=== PATIENT | female | born 1990 | race Two or more races ===

== ENCOUNTER 2024-05-15 19:51 | Emergency (ER) | payer MEDICAID, OTHER ==
[~2024-05-15] VITALS: Ht 160 cm; Wt 77.5 kg
[2024-05-15 21:25] VITALS: BP 105/70; PULSE 74; RESP 16; TEMP 98.1; O2SAT 98
--- NOTE | 2024-05-15 22:14 | ED.PDOC ---
History of Present Illness(SKN HPI Comments PRESENTS TO ED FOR RASHES TO BILATERAL HANDS X 5 DAYS. NOTED REDNESS AND DRYNESS ON BILATERAL HANDS. BEEN APPLYING CALAMINE LOTION AND BURN OINTMENT WITHOUT RELIEF. REPORTS ITCHINESS AND BURNING SENSATION. DENIES ANY CHANGES ON HER SKIN PRODUCTS. Chief Complaint: Rash Time Seen by MD: :25 History of Present Illness: Nurses Notes, Medications, Allergies Allergies: Coded Allergies: NO KNOWN ALLERGIES (Unverified , 05/15/24) Information Source: Patient Mode of Arrival: Ambulatory Past Medical History PAST MEDICAL HISTORY: Denies Surgical History: Denies all surgeries [employer] History: No Pertinent [employer] History Family History Family History: Reviewed,noncontributory to illness Social History Smoker: Non-Smoker Alcohol: Denies ETOH Use Drugs: Denies Drug Use Constitutional: denies: chills, diaphoresis, fatigue, fever, malaise, sweats, weakness, others EENTM: denies: blurred vision, double vision, ear bleeding, ear discharge, ear drainage, ear pain, ear ringing, eye pain, eye redness, hearing loss, mouth pain, mouth swelling, nasal discharge, nose bleeding, nose congestion, nose pain, photophobia, tearing, throat pain, throat swelling, voice changes, others Respiratory: denies: cough, hemoptysis, orthopnea, SOB at rest, shortness of breath, SOB with excertion, stridor, wheezing, others Cardiovascular: denies: chest pain, dizzy spells, diaphoresis, Dyspnea on exertion, edema, irregular heart beat, left arm pain, lightheadedness, palpitations, PND, syncope, others Gastrointestinal: denies: abdomen distended, abdominal pain, blood streaked bowels, constipated, diarrhea, dysphagia, difficulty swallowing, hematemesis, melena, nausea, poor appetite, poor fluid intake, rectal bleeding, rectal pain, vomiting, others Genitourinary: denies: abnormal vagina bleeding, burning, dyspareunia, dysuria, flank pain, frequency, hematuria, incontinence, pain, , vagina discharge, urgency, others Neurological: denies: dizziness, fainting, headache, left sided numbness, left sided weakness, numbness, paresthesia, pre-existing deficit, right sided numbness, right sided weakness, seizure, speech problems, tingling, tremors, weakness, others Musculoskeletal: denies: back pain, gout, joint pain, joint swelling, muscle pain, muscle stiffness, neck pain, others Integumetry: reports: rash (BILAT HANDS ); denies: bruises, change in color, change in hair/nails, dryness, laceration, lesions, lumps, wounds, others Allergic/Immunocompromised: denies: Difficulty Healing, Frequent Infections, Hives, Itching, others Hematologic/Lymphatic: denies: anemia, blood clots, easy bleeding, easy bruising, swollen glands, others Endocrine: denies: excessive hunger, excessive sweating, excessive thirst, excessive urination, flushing, intolerance to cold, intolerance to heat, unexplained weight gain, unexplained weight loss, others Psychiatric: denies: anxiety, bipolar disorder, depression, hopeless, panic disorder, schizophrenia, sleepless, suicidal, others Physical Exam General Appearance: No Apparent Distress, Normal HEENT: Pharynx Normal Neck: Full Range of Motion, Non-Tender Respiratory: Lungs Clear, No Respiratory Distress, Normal Breath Sounds Cardiovascular: No Murmur, Normal Peripheral Pulses, Regular Rate/Rhythm Breast Exam: Deferred Gastrointestinal: Non Tender, Soft Genitalia: Deferred Pelvic: Deferred Rectal: Deferred Extremities: Normal capillary refill, Normal inspection, Normal range of motion, Non-tender, No pedal edema Musculoskeletal : Apperance: Normal Neurologic: Alert, cloth carrier II-XII nml as Tested, No Motor Deficits, Normal Affect, Normal Mood, No Sensory Deficits Cerebellar Function: Normal Reflexes: Normal Skin: Dry, Normal Color, Rash (ERYTHEMIC MACULAR RASH ON BILATERAL DORSUMS HANDS NO NOTED EXCORIATIONS OR OPEN LESIONS OR DRAINAGE BLANCHABLE), Warm Lymphatic: No Adenopathy Was a procedure done? Was a procedure done?: No Differential Diagnosis (INTG) Differential Diagnosis: Cellulitis Differential Diagnosis: Candidiasis, Drug Reaction, Impetigo, Tinea, Urticaria X-Ray, Labs, Meds, VS Vital Signs Date Time Temp Pulse Resp B/P (MAP) Pulse Ox O2 Delivery O2 Flow Rate FiO2 05/15/24 21:25 98.1 74 16 105/70 (82) 98 98.1 05/15/24 21:25 74 16 98 Room Air 05/15/24 20:09 98.1 74 16 105/70 (82) 98 98.1 X-Ray, Labs, Meds, VS Comment LIKELY ALLERGIC. PATIENT GIVEN SOLU-MEDROL 40 MG IM. SCRIPT STEROID CREAM AND HYDROXYZINE FOR SLEEP FOR THE ITCHINESS. TAKE MEDICATIONS PRESCRIBED SIDE EFFECTS DISCUSSED. FOLLOW UP WITH YOUR PCP IN 1-2 DAYS. ER RETURN PRECAUTIONS GIVEN PATIENT INDICATES UNDERSTANDING AGREES WITH DISCHARGE PLAN OF CARE. Time of 1ST Reevaluation: 22:17 Reevaluation 1ST: Improved Patient Education/Counseling: Diagnosis, Treatment, Prognosis, Need For Follow Up Family Education/Counseling: No Family Present Departure 1 Departure Time of Disposition: 22:17 Impression: Primary Impression: Contact dermatitis Qualified Codes: L23.5 - Allergic contact dermatitis due to other chemical products Disposition: HOME / SELF CARE / HOMELESS Condition: Stable e-Prescriptions Hydroxyzine Hcl (Hydroxyzine Hcl) 25 Mg Tab 1 TAB PO HS PRN for 7 Days, #15 TAB TAKE 1-2 TABS AT SLEEP FOR ITCHINESS NEEDED Prov: DIOGO ANGEL 05/15/24 Clobetasol Propionate (Clobetasol Propionate) 0.05 % Cre 1 APPLIC TOP BID for 7 Days, #15 GRAMS Prov: DIOGO ANGEL 05/15/24 Discharged With: Self Critical Care Note Critical Care Time?: No Stability Stability form required: DIOGO Al May 15, 2024 22:14
[2024-05-15] MEDS ORDERED: HYDR-3682 PO (22:22)
[2024-05-15] MEDS ORDERED: CLOB0.055 TOP (22:22)
[2024-05-15] MEDS: methylPREDNISolone SOD SUCC 40 MG/ML VL IM ONE (22:38)
== END 2024-05-15 22:44 | disposition home or self-care (01) ==
LOC: EDBD 19:51 → ER 19:51
DX: L25.9 Unspecified contact dermatitis, unspecified cause (principal)
CPT/HCPCS: 96372; 99283; J2919